=== PATIENT | female | born 1960 | race Caucasian/White ===

== ENCOUNTER → 2018-09-15 | Outpatient (REF) | payer BC | LOC: M LAB LCGH 11:34 | PROVIDERS: ATTEND Family Medicine | DX: Z12.4 Encounter for screening for malignant neoplasm of cervix (principal) ==

== ENCOUNTER → 2019-11-28 | Outpatient (REF) | payer BC ==
[2019-11-28 22:02] LABS: APPEARANCE, URINE HAZY (CLEAR); BACTERIA, URINE AUTO NEGATIVE (NEGATIVE); BILIRUBIN, URINE AUTO NEGATIVE (NEGATIVE); BLOOD, URINE BLOOD 2+ (NEGATIVE); COLOR, URINE YELLOW (YELLOW); GLUCOSE, URINE (UA) AUTO NEGATIVE (NEGATIVE); KETONE, URINE AUTO TRACE mg/dL (NEGATIVE); LEUKOCYTE ESTERASE, URINE AUTO 3+ (NEGATIVE); MUCUS, URINE SMALL (NEGATIVE); NITRITE, URINE AUTO NEGATIVE (NEGATIVE); PROTEIN, URINE AUTO NEGATIVE (NEGATIVE); RBC, URINE AUTO 7 /HPF (0-3); SPECIFIC GRAVITY URINE AUTO 1.013 (1.002-1.035); SQUAMOUS EPITHELIAL CELL UR AU 2 /HPF (0-6); TRANSITIONAL EPITHELIAL AUTO <1 /HPF; UROBILINOGEN, URINE AUTO 0.2 mg/dL (0.0-2.0); WBC, URINE AUTO 46 /HPF (0-3)
== END ==
LOC: M LAB REF 21:35
PROVIDERS: ATTEND Physician Assistant Medical
DX: N39.0 Urinary tract infection, site not specified (principal)

== ENCOUNTER → 2024-01-14 | Outpatient (CLI) | payer BC | LOC: M PLAIMG 13:28 | PROVIDERS: ATTEND Otolaryngology | DX: J32.0 Chronic maxillary sinusitis (principal) ==

== ENCOUNTER 2024-04-17 09:37 | Day surgery (SDC) | payer BC ==
[~2024-04-17] VITALS: Ht 157.5 cm; Wt 78.5 kg
[~2024-04-17 09:37] MED LIST: ALBU8.5H INH; ASPI81TA26 PO; ATOR1TAB19 PO; ELET40TA PO; METO1TAB32 PO; MONT10TA97 PO; MULT1TAB8 PO; NASA1SPR NARES; QVAR40AE12 INH
[2024-04-17] MEDS ORDERED: MIDAZOLAM INJ 2MG/2ML VIAL As Ordered ONE (10:39)
[2024-04-17] MEDS ORDERED: fentaNYL 100 MCG/2 ML INJECTION As Ordered ONE (10:39)
[2024-04-17] MEDS ORDERED: ACETAMINOPHEN 1000MG/100ML IV BAG As Ordered ONE (10:40)
[2024-04-17] MEDS ORDERED: ONDANSETRON 4MG 2ML VIAL As Ordered ONE (10:41)
[2024-04-17] MEDS ORDERED: LIDOCAINE 2% 100MG/5ML SDV (FOR ANES.) As Ordered ONE (10:41)
[2024-04-17] MEDS ORDERED: SUGAMMADEX SODIUM 500 MG/5 ML VIAL (BRIDION) As Ordered ONE (10:41)
[2024-04-17] MEDS ORDERED: ROCURONIUM BROMIDE 50MG/5ML VIAL As Ordered ONE (10:41)
[2024-04-17] MEDS ORDERED: propofoL 200 MG/20 ML VIAL As Ordered ONE (10:41)
[2024-04-17] MEDS: LR 1,000 ML IV SCH (11:01)
[2024-04-17] MEDS: OXYMETAZOLINE 0.05% NASAL SPRAY As Ordered ONE (12:12)
[2024-04-17] MEDS ORDERED: HYDROmorphone HCL 2MG/ML 1ML VIAL As Ordered ONE (12:12)
[2024-04-17] MEDS: LIDOCAINE W/EPINEPHRINE 1% 20ML VIAL As Ordered ONE (12:12)
[2024-04-17] MEDS: CIPRODEX OTIC SUSP 7.5ML As Ordered ONE (12:15)
[2024-04-17] MEDS ORDERED: LR 1,000 ML IV SCH (13:35)
[2024-04-17] MEDS ORDERED: ONDANSETRON 4MG 2ML VIAL IV PRN (13:35)
[2024-04-17] MEDS ORDERED: fentaNYL 100 MCG/2 ML INJECTION IV PRN (13:35)
[2024-04-17] MEDS ORDERED: HYDROMORPHONE HCL 0.5 MG/ 0.5 ML SYRINGE IV PRN (13:35)
[2024-04-17] MEDS: oxyCODONE 5MG TAB PO PRN (15:39)
[2024-04-17 16:25] VITALS: BP 130/76; TEMP 97.6; O2SAT 95
== END 2024-04-17 16:31 | disposition home or self-care (01) ==
LOC: M SDC 09:37
PROVIDERS: ATTEND Otolaryngology
DX: J32.9 Chronic sinusitis, unspecified (principal); J34.3 Hypertrophy of nasal turbinates; H65.492 Other chronic nonsuppurative otitis media, left ear; J45.909 Unspecified asthma, uncomplicated; Z79.899 Other long term (current) drug therapy
CPT/HCPCS: 30140; 31253; 31267; 61782; 69436; 88305; 88311; J0131; J1100; J1171; J2250; J2405; J3010